=== PATIENT | female | born 1985 | race Hispanic/Latino ===

== ENCOUNTER → 2016-05-29 | Day surgery (SDC) | payer OTHER ==
--- NOTE | 2016-05-26 14:12 | History & Physical Pre-Op ---
General Information and HPI History of Present Illness: Christel is a 30-year-old female with a long-standing and worsening complaint of painful plantar fascial cyst to her left heel. The patient has undergone an extended course of conservative care, including shoe gear and activity modification, rest, immobilization and courses of NSAIDs. None of this is yielded her any significant relief. The patient presents today for preoperative surgical consultation. The patient was referred to our office from Morgan Schultz DPM. Allergies/Medications Allergies: Coded Allergies: No Known Allergies (05/25/16) Home Med list Bupropion HCl (Wellbutrin XL) 150 MG TAB.ER.24H 1 TAB PO DAILY DEPRESSION ( Reported) Cholecalciferol (Vitamin D3) (Vitamin D3) 50,000 UNIT CAPSULE VITAMIN D DEFICIENCY (Reported) SATURDAY Escitalopram Oxalate 20 MG TAB 1 TAB PO DAILY DEPRESSION (Reported) Hydroxyzine Pamoate (Vistaril) 25 MG CAPSULE 1 CAP PO BID ANXIETY (Reported) Mometasone Furoate (Nasonex) 17 GM SPRAY.PUMP 1 SPRAY NS DAILY CONGESTION Trazodone HCl 100 MG TABLET 1 TAB PO QPM PRN SLEEP (Reported) Past History Medical History Neurological: NONE EENT: NONE Cardiovascular: NONE Respiratory: NONE Gastrointestinal: NONE Hepatic: NONE Renal: NONE Musculoskeletal: NONE Psychiatric: depression Endocrine: NONE Blood Disorders: NONE Cancer(s): NONE 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 Heart sounds rate and rhythm regular. Lower extremity physical exam demonstrates intact pedal pulses bilaterally. Pulses dorsalis pedis and posterior tibial arteries are palpable bilaterally. Patient without any sensory motor deficits. Deep tendon reflexes grossly intact. Patient noted to have significant pain with palpation to the plantar medial aspect of the left heel. Ankle range of motion noted to be diminished, especially in dorsiflexion. Negative Tinel sign noted with percussion the posterior tibial nerve. Assessment/Plan Assessment/Plan: Chronic plantar fasciosis gastrocnemius equinus left. A lengthy discussion reviewing both surgical and conservative options with the patient at bedside and the patient elects to go forward with surgery despite the risks. As Ranked By This Provider Problem List: 1. Plantar fascial fibromatosis Attending MD Review Statement Attending Statement Attending MD Statement: examined this patient
[~2016-05-29] VITALS: Ht 177.8 cm; Wt 130.6 kg
[~2016-05-29] MED LIST: AMOXICILLIN500 MG PO; AUGMENTIN 875 M1 TAB PO; AUGMENTIN 875-1 EACH PO; BENZONATATE200 M1 PO; ESCITALOPRAM20 MG PO; FLEXERIL10 MG PO; IBUPROFEN800 MG PO; MEDROL DOSEPAK1 PAC PO; NASONEX17 GM NS; PHENERGAN12.5 MG PO; PREDNICOT20 MG PO; TORADOL10 MG PO; TRAZODONE HCL100 M1 PO; TYLENOL #31 TAB PO; VICODIN5-300 PO; VISTARIL25 M1 PO; VITAFOL-ONE1 SGL PO; VITAMIN D350000 UNIT; WELLBUTRIN XL150 M2 PO
--- NOTE | 2016-05-29 11:41 | Operative Report ---
Operative/Inv Procedure Report Surgery Date: 05/29/16 Name of Procedure: 1 gastrocnemius recession left 2 plantar fasciotomy left 3 plantar fasciectomy left Pre-Operative Diagnosis: 1 gastrocnemius equinus left 2 plantar fasciosis left Post-Operative Diagnosis: The same Estimated Blood Loss: scant Surgeon/Housing Coordinator: LUISA PRATT DPM Anesthesia: moderate sedation, block Operative/Procedure Note Note: After obtaining informed consent, the patient was brought to the operating room and placed on the operating table in the supine position. The patient was then securely fastened to the operating table utilizing safety belt. After administration of IV sedation, 10 mL of 0.5% Marcaine plain was infiltrated about the patient's left leg and ankle. A padded calf tourniquet was placed about the patient's left upper calf. 2 g of Ancef were delivered intravenously times one dose. Left lower extremity was scrubbed prepped and draped in usual aseptic manner. Left lower extremity was elevated to examine to limb, at which point the calf tourniquet was inflated 250 mmHg. Attention was directed to the distal left leg, where a linear incision was made 2 fingerbreadths distal to the medial have a gastrocnemius muscle. Then carried down to the medial margin of the gastroc fascia, where an interval was developed between the peritenon and the fascia. Gastrocnemius recession was then performed. The deep tissues were irrigated with normal sterile saline. The deep tissues were then closed with 4- 0 Vicryl and the skin edges reapproximated 4-0 nylon. Attention directed to the distal foot where a grid pattern was marked out overlying the origin the medial slip of the plantar fascia at 5 mm intervals. Portals well-developed and the tissue was ablated with 4 W of radiofrequency energy utilizing the Devils Elbow device. The dissection was then carried down to the medial margin of the plantar fascia which was released from its origin on the medial tubercle calcaneal tuberosity. The skin edges were then reapproximated 4-0 Vicryl. The incisions were dressed with Xeroform [place] dressings and Coban. The patient was noted to tolerate both procedure and anesthesia well and the patient was transported from the operating room to recovery by sent stable best assess intact all digits left foot.
== END ==
LOC: STS 01:34
DX: M21.6X2 Other acquired deformities of left foot (principal); M72.2 Plantar fascial fibromatosis
CPT/HCPCS: J0690; J1885; J2001; J2250

== ENCOUNTER 2016-09-05 16:45 | Emergency (ER) | payer OTHER ==
[~2016-09-05] VITALS: Ht 177.8 cm; Wt 130.2 kg
--- NOTE | 2016-09-05 18:47 | ED ANKLE/FOOT INJURY COMPLAINT ---
History of Present Illness General Chief Complaint: Foot or Ankle Injury Stated Complaint: L FOOT PAIN Source: patient Exam Limitations: no limitations Vital Signs & Intake/Output Vital Signs & Intake/Output Vital Signs Date Time Temp Pulse Resp B/P B/P Pulse O2 O2 Flow FiO2 Mean Ox Delivery Rate 09/05 1915 98.6 88 18 110/76 100 Room Air 09/05 1653 98.5 92 18 117/79 100 Room Air Allergies Coded Allergies: No Known Allergies (05/25/16) Reconcile Medications Bupropion HCl (Wellbutrin XL) 150 MG TAB.ER.24H 1 TAB PO DAILY DEPRESSION ( Reported) Cholecalciferol (Vitamin D3) (Vitamin D3) 50,000 UNIT CAPSULE VITAMIN D DEFICIENCY (Reported) SATURDAY Escitalopram Oxalate 20 MG TAB 1 TAB PO DAILY DEPRESSION (Reported) Hydroxyzine Pamoate (Vistaril) 25 MG CAPSULE 1 CAP PO BID ANXIETY (Reported) Meloxicam (Mobic) 15 MG TABLET 1 TAB PO DAILY PRN pain.inflammation Mometasone Furoate (Nasonex) 17 GM SPRAY.PUMP 1 SPRAY NS DAILY CONGESTION Oxycodone HCl/Acetaminophen (Percocet 5-325 MG Tablet) 5 MG-325 MG TABLET 1 TAB PO BID PRN pain Trazodone HCl 100 MG TABLET 1 TAB PO QPM PRN SLEEP (Reported) Triage Note: PT TO ED FOR HEEL PAIN. REPORTING SHE HAS A KNOWN HEEL SPUR, SURGERY SCHEDULED FOR LATER THIS MONTH. REPORTING PERCOCET AREN'T WORKING AT HOME. PT REQUESTING NARCOTICS. Triage Nurses Notes Reviewed? yes Occurred: gradual Duration: 4 months Timing: recent history Severity: moderate Severity Numbers: 8 Pain/Injury Location: Left: Heel. Method of Injury: unknown Modifying Factors: Improves With: pain medication. Worsens With: movement. : No Patient currently breastfeeds: No HPI: Patient is a 31-year-old female presenting to the emergency department with chief complaint of left heel pain chest pain going on for the past 4-5 months. Has seen podiatry for this issue, scheduled to have surgery on September 18. She ran out of Percocet pain medication. She is waiting to receive orthotics in the mail. Has been wearing flip-flops. Denies any new injury. Denies any numbness or tingling. Pain radiates to the left ankle. Pain currently moderate to severe. (NEREYDA JANE) Past History Travel History Traveled to [place] past 21 day No Medical History Any Pertinent Medical History? 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 No (NEREYDA JANE) Review of Systems Review of Systems Constitutional: Reports: no symptoms. Comments Review of systems: See HPI, All other systems negative. Constitutional, no chills fever or weight loss HEENT: No visual changes no sore throat Cardiovascular: No chest pain ,palpitation , orthopnea Skin, no jaundice no rashes Respiratory: No dyspnea cough sputum GI: No nausea no vomiting Muscle skeletal: no back pain, no neck pain, Neurologic: No numbness no confusion Psych: No stress anxiety or depression,. Heme/endocrine: No bruising no bleeding no polyuria or polydipsia Immunology: No splenectomy or history of AIDS (NEREYDA JANE) Physical Exam Physical Exam General Appearance: well developed/nourished, no apparent distress, alert, awake , comfortable Leg/Knee/Thigh Left: normal range of motion, normal inspection Comments: Well-developed well-nourished person in no acute distress HEENT: . Nose is atraumatic. Neck: Normal inspection Cardiovascular: Pedal pulses are 2+ bilaterally. Respiratory: No respiratory distress. Extremity: No edema, no calf tenderness to palpation, normal and equal pulses. Tender to palpation over the left heel. No pain over the left Achilles. Negative Morin sign. Negative Homans sign on the left lower extremity. Pedal pulses are 2+ bilaterally. No pain to palpation over the dorsum of the left foot. No edema erythema or ecchymosis appreciated over the left lower extremity. Neuro: Alert oriented x3, motor sensory normal Skin: No appreciable rash on exposed skin, skin is warm and dry. Psych: Mood and affect is normal, memory and judgment is normal. 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 No indication for reimaging at this time, no new injury. No signs of infection. No signs of trauma. Neurologically intact. (NEREYDA JANE) Departure Departure Time of Disposition: 1858 Disposition: HOME OR SELF CARE Condition: Stable Clinical Impression Primary Impression: Heel spur Qualifiers: Laterality: left Qualified Code: M77.32 - Calcaneal spur, left foot Referrals: RUSS LEE-RAIN,MICHEAL Lopez (PCP/Family) Additional Instructions: Follow-up with your fire dispatcher, rest, ice and elevate affected extremity. Take Percocet as prescribed for severe pain. Use meloxicam to help with inflammation. Use orthotics. Do not wear flat shoes. Departure Forms: Customer Survey General Discharge Information Prescriptions: Current Visit Scripts Meloxicam (Mobic) 1 TAB PO DAILY PRN pain.inflammation #30 TAB Oxycodone HCl/Acetaminophen (Percocet 5-325 MG Tablet) 1 TAB PO BID PRN pain #10 TAB (NEREYDA JANE) PA/FIELD TECHNICIAN Co-Sign Statement Statement: ED Attending supervision documentation- [] I saw and evaluated the patient. I have also reviewed all the pertinent lab results and diagnostic results. I agree with the findings and the plan of care as documented in the PA's/FIELD TECHNICIAN's documentation. [X] I have reviewed the ED Record and agree with the PA's/FIELD TECHNICIAN's documentation. [] Additions or exceptions (if any) to the PAs/FIELD TECHNICIAN's note and plan are summarized below: [] (LUZMA OLVERA DO)
[2016-09-05] MEDS ORDERED: MOBIC15 M1 PO (19:01)
[2016-09-05] MEDS ORDERED: PERCOCET 5-3251 EACH PO ×2 (19:01→19:03)
[2016-09-05 19:15] VITALS: BP 110/76
== END 2016-09-05 19:17 ==
LOC: ERH 16:45
DX: M77.32 Calcaneal spur, left foot (principal)

== ENCOUNTER → 2016-09-18 | Day surgery (SDC) | payer OTHER ==
--- NOTE | 2016-09-15 12:15 | History & Physical Pre-Op ---
General Information and HPI History of Present Illness: Christel is a 31-year-old female with a long-standing was complaining of a painful heel spur left foot. The patient has undergone an extended course of conservative care, including shoe gear and activity modification, rest, immobilization and courses of NSAIDs. None of this is yielded her any significant relief. The patient presents today for preoperative surgical consultation. Allergies/Medications Allergies: Coded Allergies: No Known Allergies (05/25/16) Home Med list Bupropion HCl (Wellbutrin XL) 150 MG TAB.ER.24H 1 TAB PO DAILY DEPRESSION ( Reported) Escitalopram Oxalate 20 MG TAB 1 TAB PO DAILY DEPRESSION (Reported) Mometasone Furoate (Nasonex) 17 GM SPRAY.PUMP 1 SPRAY NS DAILY CONGESTION Oxycodone HCl/Acetaminophen (Percocet 5-325 MG Tablet) 5 MG-325 MG TABLET 1 TAB PO BID PRN pain Past History Medical History Neurological: NONE EENT: NONE Cardiovascular: NONE Respiratory: NONE Gastrointestinal: NONE Hepatic: NONE Renal: NONE Musculoskeletal: NONE Psychiatric: depression Endocrine: NONE Blood Disorders: NONE Cancer(s): NONE 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 Heart sounds rate and rhythm regular. Lower extremity physical exam demonstrates intact pedal pulses bilaterally. Pulses dorsalis pedis and posterior tibial arteries are palpable bilaterally. Patient without any sensory motor deficits. Deep tendon reflexes grossly intact. Negative Tinel sign noted with percussion the posterior tibial nerve bilaterally. Assessment/Plan Assessment/Plan: Painful heel spur left foot. A lengthy discussion reviewing both surgical and conservative options was held the patient at bedside and the patient elects to go forward with surgery despite the risks. As Ranked By This Provider Problem List: 1. Heel spur Attending MD Review Statement Attending Statement Attending MD Statement: examined this patient
[~2016-09-18] VITALS: Ht 177.8 cm; Wt 131.5 kg
[~2016-09-18] MED LIST changes: +MOBIC15 M1 PO; +PERCOCET 5-3251 EACH PO
--- NOTE | 2016-09-18 12:59 | Operative Report ---
Operative/Inv Procedure Report Surgery Date: 09/18/16 Name of Procedure: 1 excision of heel spur left foot Pre-Operative Diagnosis: 1 painful heel spur left foot Post-Operative Diagnosis: The same Estimated Blood Loss: scant Surgeon/Art Historian: LUISA PRATT DPM Anesthesia: moderate sedation, block Operative/Procedure Note Note: After obtaining informed consent the patient was brought to the operating room and placed on the operating table in the supine position. The patient isn't securely fastened to the operating table utilizing safety belt. After administration of IV sedation, 10 mL of 0.5% Marcaine plain was infiltrated about the patient's left ankle. A well-padded ankle tourniquet was placed about the patient's left lower extremity. 2 g of Ancef were delivered intravenously times one dose. Left foot and ankle then scrubbed prepped and draped in usual aseptic manner. The left lower extremity was elevated to examine to limb, which point the ankle tourniquet was inflated 250 mmHg. Attention directed to the medial heel, where a 3 cm linear incision was made at the junction of the dorsal plantar skin. It was incised with 15 blade and deepened subtenons tissues. The dissection was then carried down to the medial margin of the plantar fascia, which was released from its origin on the medial tubercle calcaneal tuberosity. The medial tubercle was then right ensured and smooth a bone rasp. The wound was irrigated with cuff Svensson normal sterile saline. The deep tissues were reapproximated with 3-0 Vicryl and the skin edges reprepped with 3-0 nylon. Incision was dressed with Xeroform 4 x 4's Kerlix and Evgeny wrap. The patient was noted to tolerate both procedure and anesthesia well and the patient was transported from the operating room to recovery with vital signs stable.
== END ==
LOC: STS 02:59
DX: M77.32 Calcaneal spur, left foot (principal)
CPT/HCPCS: J0690; J2001; J2250